=== PATIENT | female | born 1965 | race Caucasian/White ===

== ENCOUNTER 2020-08-14 16:45 | Emergency (ER) | payer MEDICAID ==
[~2020-08-14] VITALS: Ht 167.6 cm; Wt 65.9 kg
[2020-08-14] MEDS ORDERED: ASPI-728 PO (16:52)
[2020-08-14] MEDS ORDERED: CYCLOBENZAPRINE HCL 10 MG TABLET PO ONE (17:45)
[2020-08-14] MEDS ORDERED: LIDOCAINE 5% TRANSDERMAL PATCH TD ONE (17:45)
[2020-08-14] MEDS ORDERED: KETOROLAC TROMETHAMINE 30 MG/ML VIAL IM ONE (17:45)
[2020-08-14 18:47] VITALS: BP 115/67
== END 2020-08-14 19:27 | disposition home or self-care (01) ==
LOC: EMS 16:49
DX: U07.1 COVID-19 (principal); R05 Cough; M54.5 Low back pain
CPT/HCPCS: 81002; 96372; 99283; J1885; U0003